=== PATIENT | male | born 1990 | race African-American/Black ===

== ENCOUNTER 2019-01-02 16:57 | Emergency (ER) | payer SELFPAY ==
[~2019-01-02] VITALS: Ht 190.5 cm; Wt 77.0 kg
[2019-01-02 17:25] VITALS: BP 125/68
== END 2019-01-02 19:27 | disposition left against medical advice (07) ==
LOC: ER 16:57
DX: Z53.21 Procedure and treatment not carried out due to patient leaving prior to being seen by health care provider (principal)
CPT/HCPCS: 93005

== ENCOUNTER → 2019-03-06 | Emergency (ER) | payer MEDICAID ==
[~2019-03-06] VITALS: Ht 193 cm; Wt 75.0 kg
[~2019-03-06] MED LIST: CEFAZOLIN 1,000 MG in DEXTROSE 5% WATER 50 ML IV SCH; CEFAZOLIN 1000MG PREMIX 50 ML IV ONE; KETOROLAC 30MG/ML VIAL IV ONE; MORPHINE SULFATE 4 MG/ML CPJ (NOT FOR IM USE) IV STA; SODIUM CHLORIDE 0.9% 1,000 ML IV ONE; TETANUS, DIPHTHERIA, PERTUSSIS VAC/PF 0.5ML (>7YR OLD) IM ONE
[2019-03-06 19:04] LABS: BASOPHILS % 0.7 % (0.0-2.0); EOSINOPHILS % 1.6 % (0.0-5.0); HEMATOCRIT. 38.4 % (42.0-52.0); LYMPHOCYTES % 51.9 % (20.0-50.0); MEAN CORPUSCULAR HEMOGLOBIN 30.5 pg (28.0-32.0); MEAN CORPUSCULAR VOLUME 90.1 fL (80.0-94.0); MEAN PLATELET VOLUME 8.9 fl (7.4-10.4); MONOCYTES % 10.8 % (2.0-8.0); PLATELET 224 x1000/uL (130-400); RED BLOOD CELL COUNT 4.26 mill/uL (4.7-6.1); RED CELL DISTRIBUTION WIDTH 13.7 % (11.6-14.6)
[2019-03-06 19:06] VITALS: BP 152/85
[2019-03-06 19:10] LABS: CHLORIDE 107 mEq/L (98-107)
[2019-03-06 19:13] LABS: INR 1.1; PARTIAL THROMBOPLASTIN TIME 30.8 sec (23.4-31.0); PROTHROMBIN TIME 11.1 sec (9.6-11.0)
== END | disposition home or self-care (01) ==
LOC: ER 18:41
DX: S61.402A Unspecified open wound of left hand, initial encounter (principal); J45.909 Unspecified asthma, uncomplicated; F41.9 Anxiety disorder, unspecified; F12.10 Cannabis abuse, uncomplicated; F43.10 Post-traumatic stress disorder, unspecified; Z71.6 Tobacco abuse counseling; X93.XXXA Assault by handgun discharge, initial encounter; Y93.89 Activity, other specified; Y92.89 Other specified places as the place of occurrence of the external cause
CPT/HCPCS: 36415; 71045; 73130; 80053; 85025; 85610; 85730; 90471; 90715; 96365; 96375; 99284; J0690; J1885; J2270; J7030; Z7610